=== PATIENT | male | born 1945 | race Caucasian/White ===

== ENCOUNTER 2023-08-25 18:11 | Outpatient (CLI) | payer MEDICARE, OTHER | END 2023-08-25 18:12 | disposition short-term general hospital (02) | LOC: EMS 18:11 | DX: R46.4 Slowness and poor responsiveness (principal); R53.1 Weakness; R53.83 Other fatigue; R19.7 Diarrhea, unspecified; R63.0 Anorexia; R23.1 Pallor; E86.0 Dehydration | CPT/HCPCS: A0425; A0427 ==